=== PATIENT | female | born 1940 | race Two or more races ===

== ENCOUNTER 2020-10-25 07:52 | Outpatient (CLI) | payer OTHER ==
[~2020-10-25 07:52] MED LIST: ALPRAZOLAM ER2 MG PO; ENALAPRIL MALEAT5 MG PO; GLUCOPHAGE XR500 MG PO
== END 2020-10-25 08:05 | disposition home or self-care (01) ==
LOC: TOM 07:52
PROVIDERS: ATTEND Internal Medicine Gastroenterology
DX: K57.90 Diverticulosis of intestine, part unspecified, without perforation or abscess without bleeding (principal); K63.5 Polyp of colon

== ENCOUNTER 2023-11-11 09:18 | Outpatient (CLI) | payer OTHER ==
[~2023-11-11 09:18] MED LIST changes: +ACTOS15 MG PO; +CIPRO500 MG PO; +LEVSIN/SL0.125 MG SL; +LOSARTAN POTASS25 MG PO; +METRONIDAZOLE500 MG PO; +NIFEDIPINE20 MG PO; +OMEPRAZOLE40 MG PO; +TIROSINT75 MCG PO; +TRIJARDY XR 101 EACH PO
== END 2023-11-11 09:30 | disposition home or self-care (01) ==
LOC: TOM 09:18
PROVIDERS: ATTEND Internal Medicine Gastroenterology
DX: K56.609 Unspecified intestinal obstruction, unspecified as to partial versus complete obstruction (principal); R19.5 Other fecal abnormalities